=== PATIENT | male | born 1995 | race American Indian/Alaskan Native ===

== ENCOUNTER 2020-01-10 01:13 | Emergency (ER) | payer SELFPAY ==
--- NOTE | 2020-01-10 02:09 | XRay Report ---
CHEST 1 VIEW INDICATION: Chest Pain. COMPARISON: None. FINDINGS: Support devices: None. Heart: Within normal limits. Lungs/Pleura: No acute air space or interstitial disease. Additional findings: None. IMPRESSION: No acute abnormality. Signer Name: Kvng Condon MD Signed: 01/10/2020 2:05 AM Workstation Name: [id number]
[2020-01-10 05:15] VITALS: BP 124/69
== END 2020-01-10 06:00 | disposition left against medical advice (07) ==
LOC: ED 01:13
DX: R07.89 Other chest pain (principal); Z53.21 Procedure and treatment not carried out due to patient leaving prior to being seen by health care provider
CPT/HCPCS: 71045; 93005